=== PATIENT | female | born 1930 | race African-American/Black ===

== ENCOUNTER 2017-06-14 16:52 | Emergency (ER) | payer OTHER ==
[~2017-06-14] VITALS: Ht 167.6 cm; Wt 90.7 kg
[~2017-06-14 16:52] MED LIST: ANTIVERT25 M1 PO; ARICEPT10 MG; ARICEPT5 MG; ATHLETE'S FOOT15 GM TP; CATAFLAM50 MG PO; CIPRO250 MG PO; COUMADIN5 MG; COUMADIN7.5 MG; COZAAR50 MG; DILANTIN100 MG PO; HYZAAR 50/12.51 TAB PO; IBUPROFEN800 MG PO; KEP PO; KEPPRA1000 MG PO; LASIX20 MG; LEVAQUIN500 MG PO; LIPITOR20 MG; LOSARTAN POTAS100 MG; MYSOLINE250 MG; MYSOLINE50 MG; NORTUSS-EX LIQ118 ML PO; TESSALON PERLE100 M1 PO; TESSALON200 MG PO; TRILEPTAL300 MG; VASOTEC10 MG; ZANTAC300 MG PO; ZOVIRAX5 GM
[2017-06-14] MEDS ORDERED: ULTRAVATE50 GM TP (17:18)
[2017-06-14] MEDS ORDERED: NYSTATIN-TRIAMC15 GM TP (17:18)
== END 2017-06-14 19:33 | disposition home or self-care (01) ==
LOC: ER 16:52
DX: R21 Rash and other nonspecific skin eruption (principal); G62.9 Polyneuropathy, unspecified